=== PATIENT | female | born 1960 | race Caucasian/White ===

== ENCOUNTER 2017-10-27 19:32 | Emergency (ER) | payer SELFPAY, BC | END 2017-10-27 20:15 | disposition left against medical advice (07) | LOC: E/R 19:32 | DX: Z53.21 Procedure and treatment not carried out due to patient leaving prior to being seen by health care provider (principal) ==

== ENCOUNTER 2019-03-18 11:56 | Emergency (ER) | payer BC ==
[2019-03-18] MEDS: morphine 4 MG/ML VIAL IV (12:45)
[2019-03-18 13:38] LABS: ADD UMIC YES; UR ASCORBIC ACID NEGATIVE (NEGATIVE); UR BILIRUBIN (Dip) NEGATIVE (NEGATIVE); UR BLOOD (Dip) 1+ mg/dL (NEGATIVE); UR CLARITY SLIGHTLY CLOUDY (CLEAR); UR COLOR YELLOW (YELLOW); UR GLUCOSE (Dip) NEGATIVE (NEGATIVE); UR KETONES (Dip) 1+ mg/dL (NEGATIVE); UR LEUKOCYTE ESTERASE (Dip) NEGATIVE Leu/ul (NEGATIVE); UR MUCUS FEW /HPF (NONE SEEN); UR NITRITE (Dip) NEGATIVE (NEGATIVE); UR RBC 32 /HPF (0-5); UR SPECIFIC GRAVITY (Dip) 1.014 (1.003-1.030); UR SQUAMOUS EPITHELIAL CELL FEW /HPF (FEW); UR TOTAL PROTEIN (Dip) 1+ mg/dl (NEGATIVE); UR UROBILINOGEN (Dip) NEGATIVE (NEGATIVE); UR WBC 4 /HPF (0-5)
[2019-03-18] MEDS: KETOROLAC 15 MG INJ IV (13:57)
== END 2019-03-18 16:11 | disposition home or self-care (01) ==
LOC: E/R 11:56
DX: N13.30 Unspecified hydronephrosis (principal)
CPT/HCPCS: 76775; 81001; 96374; 96375; 99285-25

== ENCOUNTER 2019-06-23 22:20 | Emergency (ER) | payer BC ==
[2019-06-23] MEDS: ACETAMINOPHEN 500 MG TAB PO (23:58)
[2019-06-23] MEDS: KETOROLAC 30 MG INJ IM (23:58)
== END 2019-06-24 00:34 | disposition home or self-care (01) ==
LOC: FTE 22:20
DX: J02.9 Acute pharyngitis, unspecified (principal); M62.838 Other muscle spasm
CPT/HCPCS: 96372; 99284-25